=== PATIENT | male | born 1935 | race Caucasian/White ===

== ENCOUNTER 2019-06-23 08:10 | Inpatient (IN) | payer MEDICARE, OTHER ==
[~2019-06-23] VITALS: Ht 162.6 cm; Wt 48.0 kg
[2019-06-23] MEDS ORDERED: morphine 4 MG/ML inj SYRINge IV PRN (08:55)
[2019-06-23] MEDS ORDERED: normal saline 1000ML IV soln IVB ONE (08:55)
[2019-06-23] MEDS ORDERED: ondansetron/PF 4mg/2ml inj IV ONE (08:55)
[2019-06-23 09:21] LABS: BASOPHILS % (AUTO) 0.4 % (0-1); HEMATOCRIT 38.5 % (42.0-52.0); HEMOGLOBIN 13.1 g/dl (14.0-17.9); LYMPHOCYTES % (AUTO) 21.7 % (21-51); MEAN CORPUSCULAR VOLUME 100.1 FL (78-98); MEAN PLATELET VOLUME 7.8 FL (7.4-10.4); MONOCYTES # (AUTO) 0.4 X10'3 (0-0.9); MONOCYTES % (AUTO) 9.5 % (2-12); NEUTROPHILS % (AUTO) 67.4 % (42-75); PLATELET COUNT 135 X10'3 (140-440); RED BLOOD COUNT 3.85 X10'6 (4.70-6.10); RED CELL DISTRIBUTION WIDTH 15.2 % (11.5-14.5); WHITE BLOOD COUNT 4.5 X10'3 (4.5-11.0)
[2019-06-23 09:36] LABS: ALANINE AMINOTRANSFERASE 17 U/L (12-78); ALBUMIN 3.5 G/DL (3.4-5.0); ALBUMIN/GLOBULIN RATIO 1.3 (1.1-1.5); ALKALINE PHOSPHATASE 74 IU/L (46-116); ANION GAP 6 (8-16); ASPARTATE AMINO TRANSFERASE 19 U/L (10-37); BILIRUBIN,TOTAL 0.8 MG/DL (0.1-1.0); BLOOD UREA NITROGEN 16 MG/DL (7-18); BUN/CREATININE RATIO 26.7 (5.4-32.0); CALCIUM 8.7 MG/DL (8.5-10.1); CHLORIDE 104 MMOL/L (99-107); GLUCOSE 88 MG/DL (70-104); LIPASE 67 U/L (73-393); POTASSIUM 4.1 MMOL/L (3.5-5.1); SODIUM 139 MMOL/L (135-145); TOTAL CARBON DIOXIDE 29.2 MMOL/L (24-32); TOTAL PROTEIN 6.3 G/DL (6.4-8.2); eGFR > 90 ML/MIN
[2019-06-23 09:57] LABS: CLARITY,URINE CLEAR (Clear); COLOR,URINE YELLOW (Yellow); GLUCOSE, URINE NEGATIVE (Neg); KETONES,URINE TRACE mg/dl (Neg); LEUKOCYTE ESTERASE ,URINE NEGATIVE (Neg); NITRITES, URINE NEGATIVE (Neg); OCCULT BLOOD,URINE NEGATIVE (Neg); PROTEIN,URINE NEGATIVE (Neg); UA COLLECTION TYPE CLN CATCH MIDSTREAM; UROBILINOGEN,URINE 0.2 E.U/dL (0.2-1.0)
--- NOTE | 2019-06-23 10:25 | NUR ---
spoke to Dr Brad calderon if patient can eat or drink, he said that he can, he was going to send him home, but waiting to talk to Dr Hurst first
[2019-06-23] MEDS ORDERED: acetaminophen 325mg tablet PO PRN ×2 (10:55)
[2019-06-23] MEDS ORDERED: potassium Cl 20 mEq SR tablet PO PRN ×2 (10:55)
[2019-06-23] MEDS ORDERED: magnesium Cl slow-release 64mg tablet PO PRN (10:55)
[2019-06-23] MEDS ORDERED: magnesium 2GM in 50ml NS 50 ML IV PRN (10:55)
[2019-06-23] MEDS ORDERED: HYDROmorphone inj. 0.5 MG/0.5 ML DISP.SYRIN IV PRN (10:55)
[2019-06-23] MEDS ORDERED: potassium CL 10mEq/100ml bag 100 ML IV PRN ×2 (10:55)
[2019-06-23] MEDS ORDERED: HYDROcodone/acetaminophen 10/325mg tab PO PRN (10:55)
[2019-06-23] MEDS ORDERED: metoclopramide 5 mg/ml inj IV PRN (10:55)
[2019-06-23] MEDS ORDERED: HYDROmorphone 1 mg/ml syringe IV PRN (10:55)
[2019-06-23] MEDS ORDERED: magnesium hydroxide 30ml (MOM) UD suspension PO PRN (10:55)
[2019-06-23] MEDS ORDERED: ondansetron/PF 4mg/2ml inj IV PRN (10:55)
[2019-06-23] MEDS ORDERED: magnesium 4gm in 100ml NS 100 ML IV PRN (10:55)
[2019-06-23] MEDS ORDERED: HYDROcodone/acetaminophen 5mg/325mg tablet PO PRN (10:55)
[2019-06-23] MEDS ORDERED: mag hydrox/Alum hydrox/simeth 30ml oral suspension PO PRN (10:55)
[2019-06-23 11:49] LABS: PARTIAL THROMBOPLASTIN TIME 26 SECONDS (22-32)
[2019-06-23 11:50] VITALS: BP 109/66
--- NOTE | 2019-06-23 12:01 | NUR ---
Patient transferred to room [facility] via gurney accompanied by x1 ED EMT and was able to slowly ambulate independently to bed. Patient is alert and oriented x4. Oriented to room and call light and call light placed within patient's reach. Bed is low and locked. Patient has 2 bags of belongings and a jacket. Patient reports he has a wallet in his jacket and refuses to have it locked for safety. Patient states he would "like to keep it near in sight." Patient jacket was placed Addendum: 06/23/19 at 1245 by Sofia Guzmán RN Patient jacket was placed on beside table as well as x2 bags of belongings placed in closet which patient okayed and witnessed.
[2019-06-23] MEDS: normal saline 1000ml 1,000 ML IV SCH (12:16)
--- NOTE | 2019-06-23 13:56 | NUR ---
Pt settled into room, anxious at times and has some difficulty with concentration. I talked to Dr Hill and he said the pt can have Clear Liquids for now but will consult with Dr Krueger for possible need of colonoscopy. Pt now watching tv and has had a tray of clear liquids. Pt unable to recall home meds but [facility] Kramer[facility] would have them. Neither of these are open until Tuesday. Pt attempting to slowly recall what he can from memory. External med history does not show [facility] meds, only shows minimal amount of medications.
--- NOTE | 2019-06-23 14:41 | NUR ---
Report given to Libra Rutherford to take over care. Dr Hill still working on plan for consultation. Pt says he is not interested in GI consult for colonoscopy, I will make Dr Hill aware. ER looking into possible records from [facility].
[2019-06-23] MEDS: LIDOcaine 5% patch TP SCH (17:47)
[2019-06-23 18:30] VITALS: BP 94/60
--- NOTE | 2019-06-23 18:30 | NUR ---
Problems reprioritized. Patient report given, questions answered & plan of care reviewed with RACHAEL Angeles.
--- NOTE | 2019-06-23 18:35 | NUR ---
Patient in room [facility]. I have received report from Libra Rutherford and had the opportunity to ask questions and assume patient care. Addendum: 06/23/19 at 1835 by Bridgette Hernandez RN Amended: Links added.
--- NOTE | 2019-06-23 19:00 | NUR ---
called at the start of the shift for update. she said to be fitted with a back brace.
[2019-06-23] MEDS: K and/or MAG REPLACEMENT MC SCH (20:00)
[2019-06-23] MEDS ORDERED: temazepam 15mg capsule PO PRN (21:00)
[2019-06-24] VITALS: BP 107/68
[2019-06-24] MEDS: normal saline 1000ml 1,000 ML IV SCH (00:22)
--- NOTE | 2019-06-24 04:25 | NUR ---
pt awoke c/o something in his eyes and feeling grainy. saline flush done and pt stated states it has resolved and feels much better now. denies c/o back pain at this time. says he's to be fitted on the at [place] for a back brace.
[2019-06-24 05:25] LABS: ALANINE AMINOTRANSFERASE 13 U/L (12-78); ALBUMIN 2.9 G/DL (3.4-5.0); ALBUMIN/GLOBULIN RATIO 1.2 (1.1-1.5); ALKALINE PHOSPHATASE 63 IU/L (46-116); ANION GAP 3 (8-16); ASPARTATE AMINO TRANSFERASE 16 U/L (10-37); BILIRUBIN,TOTAL 0.7 MG/DL (0.1-1.0); BLOOD UREA NITROGEN 8 MG/DL (7-18); BUN/CREATININE RATIO 15.4 (5.4-32.0); CALCIUM 8.4 MG/DL (8.5-10.1); CHLORIDE 106 MMOL/L (99-107); CREATININE 0.52 MG/DL (0.60-1.10); GLUCOSE 81 MG/DL (70-104); MAGNESIUM 1.8 MG/DL (1.5-2.4); SODIUM 140 MMOL/L (135-145); TOTAL CARBON DIOXIDE 31.1 MMOL/L (24-32); TOTAL PROTEIN 5.3 G/DL (6.4-8.2); eGFR > 90 ML/MIN
--- NOTE | 2019-06-24 05:39 | NUR ---
resting without s&s of distress.
[2019-06-24 05:41] LABS: BASOPHILS % (AUTO) 0.4 % (0-1); EOSINOPHILS # (AUTO) 0.1 X10'3 (0-0.9); EOSINOPHILS % (AUTO) 1.3 % (0-6); HEMATOCRIT 35.2 % (42.0-52.0); HEMOGLOBIN 12.2 g/dl (14.0-17.9); LYMPHOCYTES # (AUTO) 1.2 X10'3 (1.1-4.8); LYMPHOCYTES % (AUTO) 28.3 % (21-51); MEAN CORPUSCULAR HEMOGLOBIN 34.4 PG (27.0-31.0); MEAN CORPUSCULAR HGB CONC 34.6 g/dL (33.0-36.5); MEAN CORPUSCULAR VOLUME 99.3 FL (78-98); MONOCYTES # (AUTO) 0.4 X10'3 (0-0.9); MONOCYTES % (AUTO) 9.9 % (2-12); NEUTROPHILS # (AUTO) 2.5 X10'3 (1.8-7.7); NEUTROPHILS % (AUTO) 60.1 % (42-75); PLATELET COUNT 123 X10'3 (140-440); RED BLOOD COUNT 3.55 X10'6 (4.70-6.10); RED CELL DISTRIBUTION WIDTH 15.1 % (11.5-14.5); WHITE BLOOD COUNT 4.2 X10'3 (4.5-11.0)
[2019-06-24] MEDS ORDERED: CARV-50 PO (06:11)
[2019-06-24] MEDS ORDERED: LISI2.5T2 PO (06:11)
[2019-06-24] MEDS ORDERED: APIX5TAB3 PO (06:11)
--- NOTE | 2019-06-24 06:18 | NUR ---
Problems reprioritized. Patient report given, questions answered & plan of care reviewed with Leann Rutherford. Student documentation: I have reviewed and agree with all interventions, assessments performed and documented by Lucila Faustin Rn student. Addendum: 06/24/19 at 0619 by Bridgette Hernandez RN Amended: Links added.
[2019-06-24 07:00] VITALS: BP 106/72
[2019-06-24] MEDS: LIDOcaine 5% patch TP SCH (07:28)
[2019-06-24] MEDS ORDERED: enoxaparin 40mg/0.4ml syringe SUBCUT SCH (08:00)
[2019-06-24] MEDS: K and/or MAG REPLACEMENT MC SCH (08:00)
--- NOTE | 2019-06-24 09:45 | NUR ---
Patient alert, oriented, and appropriate for discharge. Patient discharged home into cab to home. Patient escorted down by member of the staff. IV's removed. Patient verbalized understanding of discharge instructions and will follow up with primary care provider. Patient declined to contest discharge and signed forms are present in chart.
== END 2019-06-24 10:15 | disposition home or self-care (01) | DRG 392 ==
LOC: ER 08:11 → ED HOLD 10:54 → SUR 3N 11:51
PROVIDERS: ADMIT Family Medicine; ATTEND Family Medicine
DX: R10.31 Right lower quadrant pain (principal); M48.56XA Collapsed vertebra, not elsewhere classified, lumbar region, initial encounter for fracture; G31.84 Mild cognitive impairment of uncertain or unknown etiology; I25.10 Atherosclerotic heart disease of native coronary artery without angina pectoris; Z86.73 Personal history of transient ischemic attack (TIA), and cerebral infarction without residual deficits; Z95.5 Presence of coronary angioplasty implant and graft; Y99.8 Other external cause status
CPT/HCPCS: 36415; 74176; 76775; 80053; 81003; 83605; 83690; 83735; 85025; 85610; 85730; 87081; 93005; G0378; J1170; J1650; J2270; J2405; J7030

== ENCOUNTER 2020-05-19 21:59 | Emergency (ER) | payer OTHER, MEDICARE ==
[~2020-05-19 21:59] MED LIST: AMLO5TAB18 PO; APIX5TAB3 PO; CARV-50 PO; FURO-150 PO; HYDR-4383 PO; LIDO700A32 TOP; LISI2.5T2 PO; POTA10TA36 PO
[2020-05-19 22:32] LABS: BASOPHILS % (AUTO) 0.4 % (0-1); EOSINOPHILS # (AUTO) 0.1 X10'3 (0-0.9); EOSINOPHILS % (AUTO) 1.4 % (0-6); HEMATOCRIT 37.9 % (42.0-52.0); HEMOGLOBIN 12.7 g/dl (14.0-17.9); LYMPHOCYTES # (AUTO) 1.3 X10'3 (1.1-4.8); LYMPHOCYTES % (AUTO) 20.9 % (21-51); MEAN CORPUSCULAR HEMOGLOBIN 34.6 PG (27.0-31.0); MEAN CORPUSCULAR HGB CONC 33.4 g/dL (33.0-36.5); MEAN CORPUSCULAR VOLUME 103.5 FL (78-98); MEAN PLATELET VOLUME 7.5 FL (7.4-10.4); MONOCYTES # (AUTO) 0.5 X10'3 (0-0.9); NEUTROPHILS # (AUTO) 4.4 X10'3 (1.8-7.7); NEUTROPHILS % (AUTO) 69.3 % (42-75); PLATELET COUNT 147 X10'3 (140-440); RED BLOOD COUNT 3.66 X10'6 (4.70-6.10); RED CELL DISTRIBUTION WIDTH 14.4 % (11.5-14.5); WHITE BLOOD COUNT 6.3 X10'3 (4.5-11.0)
[2020-05-19 22:41] LABS: ALANINE AMINOTRANSFERASE 21 U/L (12-78); ALBUMIN 3.8 G/DL (3.4-5.0); ALBUMIN/GLOBULIN RATIO 1.2 (1.1-1.5); ALKALINE PHOSPHATASE 95 IU/L (46-116); ANION GAP 6 (8-16); ASPARTATE AMINO TRANSFERASE 17 U/L (10-37); BILIRUBIN,TOTAL 0.4 MG/DL (0.1-1.0); BLOOD UREA NITROGEN 26 MG/DL (7-18); BUN/CREATININE RATIO 35.6 (5.4-32.0); CALCIUM 8.8 MG/DL (8.5-10.1); CHLORIDE 106 MMOL/L (99-107); CREATININE 0.73 MG/DL (0.60-1.10); GLUCOSE 108 MG/DL (70-104); POTASSIUM 4.6 MMOL/L (3.5-5.1); SODIUM 141 MMOL/L (135-145); TOTAL CARBON DIOXIDE 28.6 MMOL/L (24-32); eGFR > 90 ML/MIN
[2020-05-19 22:50] LABS: ETHANOL < 0.010 GM/DL (0.0-0.010)
--- NOTE | 2020-05-19 23:05 | NUR ---
Pt. given a turkey sandwich
--- NOTE | 2020-05-19 23:20 | NUR ---
Pt calmed down and is having a snack. Pt in green scrubs and sitting quietly in precautioned room
--- NOTE | 2020-05-20 00:05 | NUR ---
Pt sleeping, RR rate 16
[2020-05-20 00:19] LABS: CLARITY,URINE CLEAR (Clear); COLOR,URINE YELLOW (Yellow); GLUCOSE, URINE NEGATIVE (Neg); KETONES,URINE NEGATIVE (Neg); LEUKOCYTE ESTERASE ,URINE NEGATIVE (Neg); NITRITES, URINE NEGATIVE (Neg); OCCULT BLOOD,URINE NEGATIVE (Neg); PH,URINE 5.5 (4.8-8.0); PROTEIN,URINE NEGATIVE (Neg); UROBILINOGEN,URINE 0.2 E.U/dL (0.2-1.0)
[2020-05-20 00:25] LABS: URINE AMPHETAMINE SCREEN NEGATIVE (Neg); URINE BARBITUATE SCREEN NEGATIVE (Neg); URINE BENZODIAZEPINES SCREEN NEGATIVE (Neg); URINE CANNABINOID SCREEN NEGATIVE (Neg); URINE COCAINE SCREEN NEGATIVE (Neg); URINE METHADONE SCREEN NEGATIVE (Neg); URINE OPIATE SCREEN NEGATIVE (Neg); URINE PHENCYCLIDINE SCREEN NEGATIVE (Neg)
[2020-05-20 00:31] LABS: UA COLLECTION TYPE CLN CATCH MIDSTREAM
--- NOTE | 2020-05-20 03:24 | NUR ---
Pt still sleeping, RR 16
--- NOTE | 2020-05-20 04:33 | NUR ---
Pt up requesting to go to chap. Pt advised that chapel is closed. Pt given a bible and magazines as well as a warm blanket. Pt is not pleased and reading.
--- NOTE | 2020-05-20 06:15 | NUR ---
Pt tucked into bed with new warm blanket.
[2020-05-20] MEDS ORDERED: NO HOME MEDS (06:29)
--- NOTE | 2020-05-20 07:15 | NUR ---
Pt moved from ER main to room 24.
--- NOTE | 2020-05-20 09:05 | NUR ---
Breaking Primary RN, pt is awake, supine in bed, calm, no needs at this time
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
--- NOTE | 2020-05-20 10:29 | NUR ---
Pt is being evaluated by [facility].
--- NOTE | 2020-05-20 11:45 | NUR ---
rn women services referral ordered per [facility] recommentation.
--- NOTE | 2020-05-20 12:27 | NUR ---
SARANYA Cox called. She spoke with the pt's social media senior associate in the community [place] who is trying to get the [facility] to [facility] room for the patient as [facility] can no longer provide the service.
--- NOTE | 2020-05-20 14:00 | NUR ---
SW came and spoke with patient.
--- NOTE | 2020-05-20 15:30 | NUR ---
Pt up ambulated to bathroom.
--- NOTE | 2020-05-20 17:06 | NUR ---
Pt is lying in bed on his back with head of bed up, appears to be sleeping.
--- NOTE | 2020-05-20 17:40 | NUR ---
Pt states he would like his diet changed to vegetarian.
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
--- NOTE | 2020-05-20 18:17 | NUR ---
Pt's went to the ER main wishing to see pt. expressed distress at not being able to see him to the charge nurse. stated that she had to put their dog down which is why pt believes she wants to kill him too. told she could call pt.
--- NOTE | 2020-05-20 19:02 | NUR ---
Assumed care of Pt from Eulalio Weaver day shift RN. Pt has been eating on his dinner try since shift change. He lying on the bed with HOB at 60 degrees and is eating and drinking without difficulty. VSS at shift change.
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
--- NOTE | 2020-05-21 00:58 | NUR ---
PT UP TO BR TO VOID. WALKING AROUND UNIT TO "STRETCH MY LEGS". DENIES ANY NEEDS. RETURNED TO HIS BED AND COVERED HIMSELF WITH BLANKETS AND IS NOW LYING ON BACK WITH EYES CLOSED.
--- NOTE | 2020-05-21 01:26 | NUR ---
PT APPEARS TO BE ASLEEP, LYING ON HIS BACK WITH BLANKETS COVERING TO HIS SHOULDERS. BRENT AND RN VISIBLE TO PT AAT.
--- NOTE | 2020-05-21 03:21 | NUR ---
PT AWAKE AND UP TO BR TO VOID. AMBULATING WITH SLOW STEADY GAIT.
--- NOTE | 2020-05-21 05:49 | NUR ---
up to br to void.
--- NOTE | 2020-05-21 07:06 | NUR ---
Pt sleeping on back in semi-raymundo position. Respirations even and unlabored.
--- NOTE | 2020-05-21 08:56 | NUR ---
Patient was sitting in bed eating breakfast. Pt requests his eggs to be heated "why do you do that to me!" Pt states his breakfast was cold and "no one woke me up." Attempts were made to wake patient without result. Pt's food was reheated and he ate 100% of meal. Pt is calm and cooperative. Pt has no scheduled medications. Pt is hard of hearing causing him to speak loud. Pt spoke with his , which appeared to go well. Pt denies all mental health symptoms and is waiting for a safe discharge plan.
--- NOTE | 2020-05-21 11:13 | NUR ---
KRISTI ESPINOZA (VB DEVELOPER) IS WORKING WITH PT. HER NUMBER IS [phone].
--- NOTE | 2020-05-21 15:13 | NUR ---
[facility] 5150 was rescindeed. rollway worker consult was requested and completed for discharge.
[2020-05-21 15:29] VITALS: BP 113/76
--- NOTE | 2020-05-21 15:31 | NUR ---
DISCHARGE NOTE: Pt ambulated out to car with dario Olguin's [place] social media content manager. Sharif will be driving patient home. Discharge instructions were reviewed with patient. Pt a little agitated, but verbalized understanding. Pt is A&O. Pt left with all personal belongings.
== END 2020-05-21 15:32 | disposition home or self-care (01) ==
LOC: ER 22:00
DX: F79 Unspecified intellectual disabilities (principal); G30.9 Alzheimer's disease, unspecified; G89.29 Other chronic pain; M54.9 Dorsalgia, unspecified; F32.9 Major depressive disorder, single episode, unspecified; Z95.0 Presence of cardiac pacemaker; Z85.89 Personal history of malignant neoplasm of other organs and systems; Z79.899 Other long term (current) drug therapy
CPT/HCPCS: 36415; 80053; 80305; 80320; 81003; 84443; 85025; 99285

== ENCOUNTER 2020-09-05 21:04 | Emergency (ER) | payer OTHER, MEDICARE, MEDICAID ==
[~2020-09-05] VITALS: Ht 165.1 cm; Wt 50.0 kg
[~2020-09-05 21:04] MED LIST changes: -AMLO5TAB18 PO; -APIX5TAB3 PO; -CARV-50 PO; -FURO-150 PO; -HYDR-4383 PO; -LIDO700A32 TOP; -LISI2.5T2 PO; +NO HOME MEDS; -POTA10TA36 PO
[2020-09-05 21:33] LABS: BASOPHILS % (AUTO) 0.6 % (0-1); EOSINOPHILS # (AUTO) 0.2 X10'3 (0-0.9); EOSINOPHILS % (AUTO) 4.5 % (0-6); HEMATOCRIT 37.7 % (42.0-52.0); HEMOGLOBIN 12.7 g/dl (14.0-17.9); LYMPHOCYTES # (AUTO) 1.4 X10'3 (1.1-4.8); LYMPHOCYTES % (AUTO) 27.1 % (21-51); MEAN CORPUSCULAR HEMOGLOBIN 33.8 PG (27.0-31.0); MEAN CORPUSCULAR HGB CONC 33.6 g/dL (33.0-36.5); MEAN CORPUSCULAR VOLUME 100.6 FL (78-98); MEAN PLATELET VOLUME 7.8 FL (7.4-10.4); MONOCYTES # (AUTO) 0.5 X10'3 (0-0.9); MONOCYTES % (AUTO) 10.5 % (2-12); NEUTROPHILS # (AUTO) 2.9 X10'3 (1.8-7.7); NEUTROPHILS % (AUTO) 57.3 % (42-75); PLATELET COUNT 151 X10'3 (140-440); RED BLOOD COUNT 3.75 X10'6 (4.70-6.10); RED CELL DISTRIBUTION WIDTH 14.1 % (11.5-14.5); WHITE BLOOD COUNT 5.1 X10'3 (4.5-11.0)
[2020-09-05 21:52] LABS: URINE AMPHETAMINE SCREEN NEGATIVE (Neg); URINE BARBITUATE SCREEN NEGATIVE (Neg); URINE BENZODIAZEPINES SCREEN NEGATIVE (Neg); URINE CANNABINOID SCREEN NEGATIVE (Neg); URINE COCAINE SCREEN NEGATIVE (Neg); URINE METHADONE SCREEN NEGATIVE (Neg); URINE OPIATE SCREEN NEGATIVE (Neg); URINE PHENCYCLIDINE SCREEN NEGATIVE (Neg)
[2020-09-05 21:52] LABS: ALANINE AMINOTRANSFERASE 19 U/L (12-78); ALBUMIN 3.5 G/DL (3.4-5.0); ALBUMIN/GLOBULIN RATIO 1.1 (1.1-1.5); ALKALINE PHOSPHATASE 87 IU/L (46-116); ANION GAP 6 (8-16); ASPARTATE AMINO TRANSFERASE 16 U/L (10-37); BILIRUBIN,TOTAL 0.4 MG/DL (0.1-1.0); BLOOD UREA NITROGEN 37 MG/DL (7-18); BUN/CREATININE RATIO 61.7 (5.4-32.0); CHLORIDE 104 MMOL/L (99-107); ETHANOL < 0.010 GM/DL (0.0-0.010); GLUCOSE 89 MG/DL (70-104); POTASSIUM 4.6 MMOL/L (3.5-5.1); SODIUM 139 MMOL/L (135-145); TOTAL CARBON DIOXIDE 28.6 MMOL/L (24-32); TOTAL PROTEIN 6.7 G/DL (6.4-8.2); eGFR > 90 ML/MIN
[2020-09-05 21:54] LABS: ACETAMINOPHEN < 2.0 UG/ML (10-30)
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
--- NOTE | 2020-09-05 22:12 | NUR ---
Pt is unable to provide a medication list, states that she will bring in pt's medications in the am.
--- NOTE | 2020-09-05 22:38 | NUR ---
pt is lying in bed, no needs at this time.
--- NOTE | 2020-09-06 00:35 | NUR ---
pt is sleeping, rr unlabored, no needs at this time.
--- NOTE | 2020-09-06 09:09 | NUR ---
no signs/sypmtoms of distress. patient calmly talking to mental health.
--- NOTE | 2020-09-06 10:53 | NUR ---
patient is resting quietly, no signs/symptoms of distress.
--- NOTE | 2020-09-06 11:20 | NUR ---
Assuming care. Pt cooperative in room, sitter helping him to use urinal
--- NOTE | 2020-09-06 13:46 | NUR ---
Eating lunch in room, no distress
--- NOTE | 2020-09-06 14:57 | NUR ---
AMBULATED TO BR WITH FILM FLAT INSPECTOR, STEADY GAIT, TOLERATED WELL, COOPERATIVE
--- NOTE | 2020-09-06 16:12 | NUR ---
SOFIYA FLORES ([facility]) [phone]
--- NOTE | 2020-09-06 19:00 | NUR ---
Received pt laying in bed eating dinner. Pt is hard of hearing. Pt friendly. Pt cannot remember his medications or his pharmacy. Nurse will try and contact .
--- NOTE | 2020-09-06 20:06 | NUR ---
Nichol, pts : [phone]. Attempted to contact her, no answer. Contacted pts neighbor, Candy, who stated he will bring medication list over in the morning.
--- NOTE | 2020-09-06 21:00 | NUR ---
Pt laying in bed interacting with staff. Pt get easily distracted and forgets what he is talking about. Pt polite and friendly.
--- NOTE | 2020-09-06 23:00 | NUR ---
Pt lying in bed listening to music without complaints, in no apparent distress.
--- NOTE | 2020-09-07 00:59 | NUR ---
Pt sleeping for a couple of hours, peacefully without signs of distress. Pt just woke up for a second. Opening his eyes and looking at me, then falling back to sleep.
--- NOTE | 2020-09-07 07:19 | NUR ---
PT IN BED SLEEPING, JANINE MERRITT, TOP LIFT COMPRESSOR, SITTING WITH PT SINCE [phone].
--- NOTE | 2020-09-07 07:53 | NUR ---
[facility] REPORTS THAT PT DID NOT MEET CRITERIA AFTER YESTERDAYS EVALUATION FOR A 5150. THEY REPORT CLINICIAN CONSULTED WITH FREDDY RICHADRS WHO ORDERED A ENLISTED AIRCREW/AERIAL OBSERVER/GUNNER CONSULT. ENLISTED AIRCREW/AERIAL OBSERVER/GUNNER PAGED.
--- NOTE | 2020-09-07 08:02 | NUR ---
PT NEIGHBOR SOFIYA PENA TO BEDSIDE, BROUGHT MED REC.
[2020-09-07] MEDS ORDERED: APIX5TAB3 PO (09:13)
[2020-09-07] MEDS ORDERED: DONE-46 PO (09:13)
[2020-09-07] MEDS ORDERED: VITAMIN D CALCIUM PO (09:13)
[2020-09-07] MEDS ORDERED: CARV12.545 PO (09:13)
[2020-09-07] MEDS ORDERED: UBID200C37 PO (09:13)
[2020-09-07] MEDS ORDERED: POTA10CA44 PO (09:13)
[2020-09-07] MEDS ORDERED: FURO-150 PO (09:13)
[2020-09-07] MEDS ORDERED: ESCI5TAB PO (09:13)
[2020-09-07] MEDS ORDERED: LISI20TA28 PO (09:13)
--- NOTE | 2020-09-07 09:15 | NUR ---
SPOKE TO PT ABOUT HIS DARK PURPLE LEFT EYE AND RIGHT LOWER LIP DARK PURPLE BRUISE. HE SAID "NONE OF YOUR BUSINESS". PT ASKED FOR HIS BREAKFAST TRAY TO BE HEATED UP. PT NEIGHBOR SOFIYA AT BEDSIDE STILL. THEY ARE WAITING FOR GLOBAL CEO.
--- NOTE | 2020-09-07 09:59 | NUR ---
SECOND PAGE SENT TO INVENTORY MANAGER
--- NOTE | 2020-09-07 10:00 | NUR ---
pt gabriela reports pt leaves the house frequently, gets lost and she drives her car to find him. However when he left this last time it was night and she doesn't drive at night.
--- NOTE | 2020-09-07 10:00 | NUR ---
#[phone] nichol () called her. She gave Candy (neighbor) a medication list and there was a note reguarding the patient needing eye drops daily but did not specify the drops. Nichol refused to give the name of the drug and instructions. She did not want to be responsible to giving the drops or info. She said the patient has been without drops, last dose Tuesday night. She was insistent that the surgeon be called on Tuesday morning to discuss the drops. She said that she does not thinks she can come to the ER bc the pt is angry with her about his shoes. She is very overwhelmed. Pt is hard of hearing. Pt just moved to new address on [address] with his of 32years. She says she loves him very much. dr. Gipson at [facility] [address] did the cataract surgery 08/28. Fischer #[phone]
--- NOTE | 2020-09-07 11:20 | NUR ---
SOCAL SERVICES HAS BEEN PAGED x3 AND MESSAGE LEFT ON THEIR EXTENTION TO COME TO THE ER AND CONSULT FOR PT
--- NOTE | 2020-09-07 11:47 | NUR ---
called dr. kim office, left a message with the waste collection driver message team.
--- NOTE | 2020-09-07 12:09 | NUR ---
PT'S WAS CONTACTED IN AN ATTEMPT TO OBTAIN THE NAME OF THE PT'S EYE GTTS AND HOW TO ADMINISTER THEM. PT'S ; KATHY,AGAIN REFUSED TO PROVIDE THE INFORMATION. KATHY WAS INFORMED THAT THE INFORMATION IS IMPORTANT AND THAT HER REFUSAL TO PROVIED THE INFORMATION COULD LEAD TO DAMAGE TO HE PT'S EYE SIGHT. KATHY STATED THAT IT HAD TO BE GIVEN IN A SPECIAL WAY, HE HAS STOPPED TAKING IT FOR SEVERAL DAYS AND THAT HE HAS AN APPT FOR FOLLOW UP WITH HIS SURGEON ON TUESDAY. KATHY WAS INFORMED THAT HE MAY NOT MAKE THAT APPT SINCE WE HAVE BEEN UNABLE TO GET A SS CONSULT. KATHY STATED THAT THEY HAVE HAD HOME HEALTH THROUGH THE ID FOR ALMOST A YEAR AND THAT HAS NOT CHANGED. KATHY WAS THEN INFORMED THAT WE WERE TOLD THAT SHE DID NOT WANT THE PT TO RETURN HOME AT WHICH TIME KATHY BECAME VERY UPSET, STATING THAT SHE DOES WANT HIM HOME... "I LOVE HIM, FOR BETTER OR WORSE, SICKNESS AND IN HEALTH, I WANT HIM HOME. WE WILL BE 31 YEARS ON September!" PT'S PROVIDER, CHRIS RICHARDS NOTIFIED OF THE CONVERSATION WITH KATHY, THAT SHE WANTS HIM HOME AND PT WILL BE DISCHARGED TO HIS . Addendum: 09/07/20 at 1226 by LIAT KATHY WAS CALLED AND NOTIFIED THAT PT WILL BE DISCHARGED AND VERIFIED THAT SHE WAS ABLE TO COME PICK HIM UP. KATHY STATED THAT SHE WOULD BE ON HER WAY. KATHY WAS TOLD THAT SHE WOULD BE MET OUTSIDE OF THE [facility] AND ASSISTED IN GETTING PT INTO HER CAR.
[2020-09-07] MEDS ORDERED: haloperidol lactate 5mg/ml inj IM ONE (12:50)
--- NOTE | 2020-09-07 12:50 | NUR ---
PT KNOWS DIGITAL COMMUNITY MANAGER WITH CONTACT HER TOMORROW. HER INFO UPDATED UP FRONT WITH ADMITTING.
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
--- NOTE | 2020-09-07 13:23 | NUR ---
PT'S IS HERE TO TAKE PT HOME. WHEN PT WAS NOTIFIED AND HIS CLOTHES RETURNED TO HIM, THE PT REFUSSED TO GO HOME WITH HIS . PT BECAME VERBALLY ABUSIVE AND PHYSICALLY THREATENING. PROVIDER CHRIS RICHARDS WAS AT THE BEDSIDE AND TRIED TO DISCUSS PT GOING HOME. PT'S BEHAVIOR EXCULLATED WITH YELLING, CALLING CHRIS BERRY. PT STARTED TO LEAVE HIS ROOM, PCT NO WAS ASKED FOR ASSISTANCE. PT CONTINUED TO REFUSE TO RE-ENTER HIS ROOM, NO OFFERED TO TAKE HIM TO THE BATHROOM. UPON RETURNING TO HIS ROOM, PT'S BEHAVIOR CONTINUED TO ESCULATE, HITTING HIMSELF IN THE CHEST. HIS ASKED HIM TO NOT HURT HIMSELF, THAT HE WOULD DAMAGE HIS AICD, PT THEN STARTED YELLING "DONT TELL ME WHAT TO DO, I CAN HIT MYSELF IF I WANT, I DONT CARE IF I HURT MYSELF." PT CONTINUED TO EXPRESS THAT HE WANTED TO BE LEFT ALONE, THAT HE WAS NOT GOING HOME WITH HIS AND CONTINUED TO BECOME INCREASINGLY AGRESSIVE. SECURITY WAS CALLED, PT'S WAS REMOVED FROM THE AREA AND MYSELF AND PT'S NURSE STEPHANIE EXPRESSED THAT IT WAS NOT SAFE FOR HER TO TAKE THE PT HOME, THAT THERE WAS NOTICIBLE BRUISING ON HER FOREHEAD. PT'S STATED THAT SHE WOULD BE OK, THAT SHE HAS SUPPORT WITHIN HER APPARTMENT COMPLEX. AFTER MUCH DISCUSSION, PT'S REALIZED THAT HER SAFTY WAS AT RISK IF THE PT CAME HOME WITH HER. IT WAS DECIDED THAT THE PT WOULD REMAIN IN THE ER AND TO BE SEEN BY SS TUESDAY MORNING WITH HOPES OF ASSISTANCE OF GETTING PT PLACED IN A FACILITY THAT WOULD SUIT HIS NEEDS. PT'S WAS EXTREEMLY UPSET OVER THE SITUATION, BUT STATED THAT IT WAS FOR THE BEST; HOWEVER, WHILE BEING EXCORTED TO HER CAR IN THE HOSPITAL PARKING LOT, SHE EXPRESSED HER CONCERN OVER FINANCES A RESULTY OF THE SITUATION.
--- NOTE | 2020-09-07 13:38 | NUR ---
PT HAS SETTLED DOWN, REFUSED HIS LUNCH AND SITTING ON THE SIDE OF HIS BED WITH HIS SUNGLASSES ON.
--- NOTE | 2020-09-07 15:01 | NUR ---
PT HAS PUT A SHIRT ON UNDER HIS GREEN SCRUB TOP THAT HE TOOK OUT OF HIS BELONGS BAG PRIOR TO REMOVING IT FROM HIS ROOM. THE REMAINDER OF PT'S BELONGINGS HAVE BEEN RETURNED TO OF [facility].
--- NOTE | 2020-09-07 15:34 | NUR ---
pt laying bed, lights out, across from charge desk. Pt refused lunch.
--- NOTE | 2020-09-07 18:42 | NUR ---
pt sitting up in bed eating dinner.
[2020-09-07] MEDS: apixaban 5mg tablet PO SCH (19:34)
[2020-09-07] MEDS: carVEDilol 12.5mg tablet PO SCH (19:34)
--- NOTE | 2020-09-07 19:37 | NUR ---
Patient resting comfortably on gurney, he was pleasant and cooperative for me, took medications w/o problem.
[2020-09-07] MEDS: lisinopril 2.5mg tablet PO SCH (20:19)
[2020-09-07] MEDS: donepezil 5mg tablet PO SCH (20:19)
--- NOTE | 2020-09-07 22:14 | NUR ---
Pt sleeping in room, no distress
--- NOTE | 2020-09-08 01:13 | NUR ---
relieving RN for break, pt is resting quietly on gurney
--- NOTE | 2020-09-08 06:24 | NUR ---
FAXED PACKET [facility]
[2020-09-08] MEDS: potassium chloride 10mEq ER tablet PO SCH (08:00)
[2020-09-08] MEDS ORDERED: UBIDECARENONE PO SCH (08:00)
[2020-09-08] MEDS: carVEDilol 12.5mg tablet PO SCH ×2 (08:00→20:13)
[2020-09-08] MEDS: furosemide 20MG tablet PO SCH (08:00)
[2020-09-08] MEDS: calcium carbonate/vitamin D3 tablet PO SCH (10:04)
[2020-09-08] MEDS: ESCITALOPRAM OXALATE 5 MG TABLET PO SCH (10:04)
[2020-09-08] MEDS: apixaban 5mg tablet PO SCH ×2 (10:04→20:13)
--- NOTE | 2020-09-08 10:42 | NUR ---
KATHY DUNHAM CALLED "RETURNING EILEEN'S CALL" ; TRANSFERRED TO PLASTER FORM MAKER NUMBER KATHY [phone]
--- NOTE | 2020-09-08 11:52 | NUR ---
pt moved from bed 15 to bed 25
--- NOTE | 2020-09-08 13:09 | NUR ---
Recieved Pt standing calmly at the nurses station in no distress.
--- NOTE | 2020-09-08 15:00 | NUR ---
Pt approached nursing station and began to speak aggressively and condescendingly. Pt kept getting closer to staff and responded irritably to boundaries, and security was called. Pt returned to his bed area and was calm.
--- NOTE | 2020-09-08 19:33 | NUR ---
The patient is in the ER pending social service evaluation and possible placement outside the home. The patient is alert and oriented to himself, the month, the year, and place. He is currently resting quietly on his bed.
[2020-09-08] MEDS: donepezil 5mg tablet PO SCH (20:13)
[2020-09-08] MEDS: lisinopril 2.5mg tablet PO SCH (20:13)
--- NOTE | 2020-09-08 21:07 | NUR ---
The patient appears to be sleeping
--- NOTE | 2020-09-08 22:37 | NUR ---
The patient up and standing around his bed fussing with his blankets
--- NOTE | 2020-09-08 23:39 | NUR ---
The patient appears to be sleeping
--- NOTE | 2020-09-09 01:05 | NUR ---
The patient appears to be sleeping
--- NOTE | 2020-09-09 02:51 | NUR ---
The patient appears to be sleeping
--- NOTE | 2020-09-09 07:00 | NUR ---
Received pt asleep in bed without signs of distress.
[2020-09-09] MEDS: apixaban 5mg tablet PO SCH ×2 (08:58→20:48)
[2020-09-09] MEDS: ESCITALOPRAM OXALATE 5 MG TABLET PO SCH (08:58)
[2020-09-09] MEDS: furosemide 20MG tablet PO SCH (08:58)
[2020-09-09] MEDS: carVEDilol 12.5mg tablet PO SCH ×2 (08:58→20:00)
[2020-09-09] MEDS: potassium chloride 10mEq ER tablet PO SCH (08:59)
[2020-09-09] MEDS: calcium carbonate/vitamin D3 tablet PO SCH (08:59)
--- NOTE | 2020-09-09 09:00 | NUR ---
Pt up for breakfast and is polite and cooperative with am assessment and medications.
--- NOTE | 2020-09-09 11:00 | NUR ---
Pt laying in bed, sleeping in no apparent distress.
--- NOTE | 2020-09-09 13:00 | NUR ---
Pt remains asleep in bed without signs of distress.
--- NOTE | 2020-09-09 15:00 | NUR ---
Pt bx remains cooperative and pleasant. Pt interacting appropriately with peers, but did have to be reminded of staying in his own space.
--- NOTE | 2020-09-09 15:26 | NUR ---
Notified by CM director to call ER, spoke with Chasity, explained that [facility] has been working with patient on resources and placement, referrals were sent yesterday to the [place] area per patient request, asked if need any further assistance please page CM or [facility]
--- NOTE | 2020-09-09 17:00 | NUR ---
Pt spoke with his when she called and they had a long, civil conversation, ending with "I love you".
[2020-09-09] MEDS: lisinopril 2.5mg tablet PO SCH (20:48)
[2020-09-09] MEDS: donepezil 5mg tablet PO SCH (20:48)
--- NOTE | 2020-09-09 22:03 | NUR ---
PT AWAKE, INTERMITTENTLY WALKING AROUND NURSES STATION AND BEDROOM.
--- NOTE | 2020-09-10 01:03 | NUR ---
Pt appears asleep and in NAD.
--- NOTE | 2020-09-10 04:44 | NUR ---
Pt appears asleep and in NAD.
--- NOTE | 2020-09-10 06:20 | NUR ---
Patient sleeping supine. No distress observed. Continue to monitor.
--- NOTE | 2020-09-10 06:25 | NUR ---
Note adria in ED - 09/10/20 at 0737 by BONNIE Patient sleeping supine. No distress observed. Continue to monitor.
--- NOTE | 2020-09-10 08:21 | NUR ---
Patient sittin up reading his breakfast list. No dist ress observed. RN turned light on for patient. Contnue to monitor.
[2020-09-10] MEDS: carVEDilol 12.5mg tablet PO SCH ×2 (08:59→19:43)
[2020-09-10] MEDS: ESCITALOPRAM OXALATE 5 MG TABLET PO SCH (08:59)
[2020-09-10] MEDS: furosemide 20MG tablet PO SCH (08:59)
[2020-09-10] MEDS: calcium carbonate/vitamin D3 tablet PO SCH (08:59)
[2020-09-10] MEDS: potassium chloride 10mEq ER tablet PO SCH (08:59)
[2020-09-10] MEDS: apixaban 5mg tablet PO SCH ×2 (08:59→19:42)
--- NOTE | 2020-09-10 09:29 | NUR ---
Patient took his medication as prescribed. RN obtained soy milk (without flavoring). Also got patient apple juice. Patient was appreciative. Continue to monitor.
--- NOTE | 2020-09-10 10:20 | NUR ---
Patient is being kind and attempting to comfort his beligerent neighbor. Patient asked to leave neighbor alone and it just escalates patient. Patient is cooperative. Continue to moitor.
--- NOTE | 2020-09-10 12:05 | NUR ---
Patient ambulatory to BR, steady gait. Continue to monitor.
--- NOTE | 2020-09-10 13:10 | NUR ---
Patient eating lunch. No distress observed. Continue to monitor.
--- NOTE | 2020-09-10 14:45 | NUR ---
Patient sitting at the edge of his bed. No distress observed. Continue to monitor.
--- NOTE | 2020-09-10 15:05 | NUR ---
FREDDY Joseph, [facility] evaluating patient for medication. No distress observed. Continue to monitor.
--- NOTE | 2020-09-10 16:05 | NUR ---
FREDDY Joseph, [facility] stated he would recommend 0.25 mg Ativan PRN for agitation. Eval requested by RACHAEL Villafuerte. Continue to monitor.
--- NOTE | 2020-09-10 17:44 | NUR ---
Patient sleeping. No distress observed. Continue to monitor.
--- NOTE | 2020-09-10 18:56 | NUR ---
PT RESTING COMFORTABLY IN BED LOCKED IN LOWEST POSITION. PT EATING DINNER AT THIS TIME AND IS ALERT AND ORIENTED AND CALM.
[2020-09-10] MEDS: donepezil 5mg tablet PO SCH (19:42)
--- NOTE | 2020-09-10 20:00 | NUR ---
PT CURRENTLY MAKING HIS BED, FOLDING HIS BLANKET. PT IN GOOD SPIRITS IN NO SIGN OF DISTRESS OR PAIN AT STATED BY PT. PT TALKATIVE TO RN.
[2020-09-10] MEDS: lisinopril 2.5mg tablet PO SCH (20:50)
--- NOTE | 2020-09-10 21:15 | NUR ---
ASSISTED PT WITH MAKING BED, BROUGHT PT MORE WATER AND SNACK, PT TALKATIVE AND IN GOOD SPIRITS.
--- NOTE | 2020-09-10 22:30 | NUR ---
PT PREPARING FOR BED AFTER TAKING ALL MEDICINES WELL WITH WATER. PT TALKING TO RN ABOUT AND FAMILY AND IS IN GOOD SPIRITS.
--- NOTE | 2020-09-10 23:15 | NUR ---
ASSISTED PT TO BED. PT ASKED TO HAVE LIGHT TURNED OFF AND IS GOING TO TRY AND SLEEP.
--- NOTE | 2020-09-11 00:21 | NUR ---
PT SLEEPING COMFORTABLY IN BED, LOCKED IN LOWEST POSITION.
--- NOTE | 2020-09-11 01:47 | NUR ---
ASSISTED PT TO RESTROOM AT THIS TIME. PT CONFUSED. REMINDED PT HE IS IN HOSPITAL, PT SAYS HE WILL GO BACK TO BED SOON.
--- NOTE | 2020-09-11 02:11 | NUR ---
REAFFIRMED PT THAT HE CAN GO BACK TO SLEEP AND DOES NOT NEED TO HELP US WITH ANY CLEANING TONIGHT. PT STATED HE UNDERSTOOD AND HAS GONE BACK TO SLEEP.
--- NOTE | 2020-09-11 02:39 | NUR ---
PT CURRENTLY REORGANIZING BED SHEETS STATING THAT HE "HAS HAD ENOUGH SLEEP AND WOULD LIKE TO CLEAN AT THIS TIME."
--- NOTE | 2020-09-11 03:51 | NUR ---
PT SLEEPING COMFORTABLY AT THIS TIME.
--- NOTE | 2020-09-11 04:48 | NUR ---
PATIENT SLEEPING SUPINE COMFORTABLY IN BED, BED LOCKED IN LOWEST POSITION.
--- NOTE | 2020-09-11 05:46 | NUR ---
PT CONTINUES TO SLEEP COMFORTABLY IN BED LOCKED IN LOWEST POSITION AT THIS TIME.
[2020-09-11 06:17] VITALS: BP 110/76
--- NOTE | 2020-09-11 07:00 | NUR ---
Patient sleeping supine. No distress observed. Continue to monitor.
[2020-09-11] MEDS ORDERED: LORazepam 0.5 MG tablet PO SCH (08:20)
--- NOTE | 2020-09-11 08:40 | NUR ---
Patient up and ambulatory to BR, steady gait. Continue to monitor.
[2020-09-11] MEDS: calcium carbonate/vitamin D3 tablet PO SCH (08:56)
[2020-09-11] MEDS: ESCITALOPRAM OXALATE 5 MG TABLET PO SCH (08:56)
[2020-09-11] MEDS: potassium chloride 10mEq ER tablet PO SCH (08:56)
[2020-09-11] MEDS: furosemide 20MG tablet PO SCH (08:56)
[2020-09-11] MEDS: carVEDilol 12.5mg tablet PO SCH (08:56)
[2020-09-11] MEDS: apixaban 5mg tablet PO SCH (08:56)
--- NOTE | 2020-09-11 09:35 | NUR ---
Patient eating slowly. No distress observed. Continue to monitor.
--- NOTE | 2020-09-11 09:40 | NUR ---
Patient's came in to pickle maker patient. Patient is calm and happy to see her. Patient slowly getting dressed. Continue to monitor.
== END 2020-09-11 10:09 ==
LOC: ER 21:04
DX: F03.90 Unspecified dementia, unspecified severity, without behavioral disturbance, psychotic disturbance, mood disturbance, and anxiety (principal); Z20.822 Contact with and (suspected) exposure to COVID-19; G89.29 Other chronic pain; F32.9 Major depressive disorder, single episode, unspecified; Z85.9 Personal history of malignant neoplasm, unspecified; Z95.0 Presence of cardiac pacemaker
CPT/HCPCS: 36415; 80053; 80305; 80320; 80329; 85025; 87426; 99285

== ENCOUNTER 2021-02-20 18:44 | Emergency (ER) | payer OTHER, MEDICARE, MEDICAID ==
[~2021-02-20] VITALS: Ht 167.6 cm; Wt 54.5 kg
[~2021-02-20 18:44] MED LIST changes: +APIX5TAB3 PO; +CARV12.545 PO; +DONE-46 PO; +ESCI5TAB PO; +FURO-150 PO; +LISI20TA28 PO; -NO HOME MEDS; +POTA10CA44 PO; +UBID200C37 PO; +VITAMIN D CALCIUM PO
[2021-02-21 07:54] VITALS: BP 104/77
== END 2021-02-21 10:35 | disposition home or self-care (01) ==
LOC: ER 18:45
DX: U07.1 COVID-19 (principal); F03.90 Unspecified dementia, unspecified severity, without behavioral disturbance, psychotic disturbance, mood disturbance, and anxiety; G89.29 Other chronic pain; F32.9 Major depressive disorder, single episode, unspecified; Z95.0 Presence of cardiac pacemaker; Z85.9 Personal history of malignant neoplasm, unspecified; Z79.899 Other long term (current) drug therapy
CPT/HCPCS: 99285